=== PATIENT | female | born 1970 | race Caucasian/White ===

== ENCOUNTER → 2016-09-05 | Outpatient (CLI) | payer OTHER, BC ==
[~2016-09-05] MED LIST: ACET-1256 PO; CHOL2000 PO; LEVO100T7 PO; MULT-360 PO; MULT-513 PO
--- NOTE | 2016-09-05 09:25 | DIAGNOSTIC IMAGING REPORT ---
LEFT HIP UNILATERAL 2 VIEWS CLINICAL HISTORY: LEFT HIP PAIN pain COMPARISON: None. DISCUSSION: The bones and joint spaces appear intact. There is no evidence of fracture, dislocation or bony disease. There is no evidence for soft tissue swelling. IMPRESSION: Negative study. Electronically signed by: Zac Tran M.D. 09/05/2016 9:23 AM Dictated Date/Time: 09/05/2016 9:23 AM
== END | disposition home or self-care (01) ==
LOC: C.RAD1850 09:06
PROVIDERS: ATTEND Nurse Practitioner Adult Health
DX: M25.552 Pain in left hip (principal)

== ENCOUNTER → 2016-09-26 | Outpatient (CLI) | payer BC | END | disposition home or self-care (01) | LOC: C.PAPS 15:28 | PROVIDERS: ATTEND Physician Assistant | DX: Z01.419 Encounter for gynecological examination (general) (routine) without abnormal findings (principal) ==

== ENCOUNTER 2017-05-08 21:27 | Emergency (ER) | payer BC ==
[~2017-05-08] VITALS: Ht 154.9 cm; Wt 89.7 kg
[2017-05-08 21:31] VITALS: TEMP 36.5; Ht 154.9 cm; Wt 89.7 kg
[2017-05-08] MEDS ORDERED: CEFTRIAXONE SOD INJ 1 GM ADDVIAL IV STA (21:38)
[2017-05-08] MEDS ORDERED: SULFAMETHOXAZOLE/TRIMETHOPRIM DS 800/160MG TAB PO STA (21:38)
--- NOTE | 2017-05-08 21:45 | EMERGENCY ROOM VISIT NOTE ---
History Report prepared by Zakiya: Ralph Benavidez Under the Supervision of: Dr. Hola Arevalo M.D. First contact with patient: 21:35 Chief Complaint: SWELLING TO EXTREMITY Stated Complaint: LEG SWELLING,HOT TO TOUCH/BURNING ON LEGS History of Present Illness The patient is a 46 year old female who presents to the Emergency Room with complaints of constant inflammation to a vein in her right inner thigh beginning this evening. The patient states her symptoms began with her leg becoming 'jumpy' and hot with a burning sensation. She reports she has history of phlebitis and prediabetes 15 years ago when she was . The patient notes she lost weight and is no longer at risk. She denies chest pain and shortness of breath. Source of History: patient Onset: this evening Position: leg (right inner thigh) Quality: burning, other (hot, inflammed vein) Timing: constant Associated Symptoms: No chest pain, No SOB Note: Associated symptoms: jumpy leg Review of Systems See HPI for pertinent positives & negatives. A total of 10 systems reviewed and were otherwise negative. Past Medical & Surgical Medical Problems: (1) Prediabetes Surgical Problems: (1) History of cholecystectomy Family History Cancer Diabetes mellitus Gallbladder disease Heart disease Hypertension Kidney disease Kidney stones Social History Smoking Status: Never Smoker Alcohol Use: none Drug Use: none Marital Status: single Housing Status: lives with family Occupation Status: employed Current/Historical Medications Scheduled Acetaminophen (Tylenol), 1-2 TAB PO Q8 Cephalexin Monohydrate (Keflex), 1 CAP PO QID Cholecalciferol (Vitamin D3), 1 CAP PO DAILY Levothyroxine Sodium (Levothyroxine Sodium), 175 MCG PO DAILY Sulfa/Trimethoprim (Bactrim Ds 800MG/160MG), 1 TAB PO BID [B 12 Liquid Vit], 1 DOSE SL DAILY [Pro-Care Vitamin], 1 TAB PO DAILY Allergies Coded Allergies: No Known Allergies (Verified , 04/24/16) Physical Exam Vital Signs Date Time Temp Pulse Resp B/P (MAP) Pulse Ox O2 Delivery O2 Flow Rate FiO2 05/08/17 23:31 79 16 112/68 96 05/08/17 21:31 36.5 72 16 151/77 99 Room Air Physical Exam GENERAL: Patient is a healthy-appearing well-nourished 46 year old female. HEAD: Normocephalic atraumatic EYES: Ocular movements intact pupils equal and react to light OROPHARYNX mucous membranes are moist no exudates present no erythema or edema present NECK: Supple no nuchal rigidity CHEST: Good equal expansion LUNGS: Clear and equal to auscultation CARDIAC: Normal S1 and S2 ABDOMEN: Soft nontender no guarding BACK: No CVA tenderness EXTREMITIES: No pain upon palpation normal muscle strength in all groups no clubbing cyanosis or edema. Area of cellulitis to left thigh [id number], superficial varicose veins NEURO: Patient is following commands and answering questions appropriately. Alert and oriented x3 Cranial Nerves 2-12 grossly intact Medical Decision & Procedures ER Provider Diagnostic Interpretation: Radiology results as stated below per my review and radiologist interpretation: RIGHT LOWER EXTREMITY VENOUS DOPPLER HISTORY: Right leg swelling. COMPARISON STUDY: None. FINDINGS: There is normal compressibility, flow, and augmentation within the right lower extremity deep venous system. Multiple superficial varicosities at the level of the knee/posterior calf which are patent. IMPRESSION: No DVT within the right lower extremity Electronically signed by: Franklyn Mullen M.D. 05/08/2017 11:03 PM Dictated Date/Time: 05/08/2017 11:02 PM Laboratory Results 05/08/17 21:45 Red Blood Count 4.97, Mean Corpuscular Volume 87.1, Mean Corpuscular Hemoglobin 29.4, Mean Corpuscular Hemoglobin Concent 33.7, Mean Platelet Volume 10.6, Neutrophils (%) (Auto) 57.7, Lymphocytes (%) (Auto) 30.7, Monocytes (%) (Auto) 9.8, Eosinophils (%) (Auto) 1.3, Basophils (%) (Auto) 0.4, Neutrophils # (Auto) 4.82, Lymphocytes # (Auto) 2.57, Monocytes # (Auto) 0.82, Eosinophils # (Auto) 0.11, Basophils # (Auto) 0.03 05/08/17 21:45 Test 05/08/17 21:45 White Blood Count 8.36 K/uL (4.8-10.8) Red Blood Count 4.97 M/uL (4.2-5.4) Hemoglobin 14.6 g/dL (12.0-16.0) Hematocrit 43.3 % (37-47) Mean Corpuscular Volume 87.1 fL (80-100) Mean Corpuscular Hemoglobin 29.4 pg (25-34) Mean Corpuscular Hemoglobin Concent 33.7 g/dl (32-36) Platelet Count 249 K/uL (130-400) Mean Platelet Volume 10.6 fL (7.4-10.4) Neutrophils (%) (Auto) 57.7 % Lymphocytes (%) (Auto) 30.7 % Monocytes (%) (Auto) 9.8 % Eosinophils (%) (Auto) 1.3 % Basophils (%) (Auto) 0.4 % Neutrophils # (Auto) 4.82 K/uL (1.4-6.5) Lymphocytes # (Auto) 2.57 K/uL (1.2-3.4) Monocytes # (Auto) 0.82 K/uL (0.11-0.59) Eosinophils # (Auto) 0.11 K/uL (0-0.5) Basophils # (Auto) 0.03 K/uL (0-0.2) RDW Standard Deviation 42.5 fL (36.4-46.3) RDW Coefficient of Variation 13.5 % (11.5-14.5) Immature Granulocyte % (Auto) 0.1 % Immature Granulocyte # (Auto) 0.01 K/uL (0.00-0.02) Anion Gap 7.0 mmol/L (3-11) Est Creatinine Clear Calc Drug Dose 77.9 ml/min Estimated GFR () 87.1 Estimated GFR (Non- 75.1 BUN/Creatinine Ratio 19.3 (10-20) Calcium Level 8.5 mg/dl (8.5-10.1) Labs reviewed by ED physician. Medications Administered Medications (Trade) Dose Ordered Sig/Yuri Route Start Time Stop Time Status Last Admin Dose Admin Ceftriaxone Sodium (Rocephin Inj) 1 gm NOW STAT IV 05/08/17 21:38 05/08/17 21:40 DC 05/08/17 22:02 1 GM Trimethoprim/ Sulfamethoxazole (Septra Ds 800/ 160MG Tab) 1 tab NOW STAT PO 05/08/17 21:38 05/08/17 21:40 DC 05/08/17 22:02 1 TAB Ketorolac Tromethamine (Toradol Inj) 30 mg NOW STAT IV 05/08/17 22:59 05/08/17 23:00 DC 05/08/17 23:16 30 MG ED Course 2136: Past medical records reviewed. The patient was evaluated in room B02. A complete history and physical examination was performed. 2137: Ordered Trimethoprim/Sulfamethoxazole 1 tab PO, Ceftriaxone Sodium 1gm IV 2258: Ordered Toradol Inj 30mg IV 0: Upon reexamination the patient is resting and feeling better. I discussed results and treatment plan with the patient. She verbalizes agreement and understanding. The patient is ready for discharge. Medical Decision Differential diagnosis: Etiologies such as cellulitis, abscess, MRSA infection, DVT, necrotizing fasciitis, dermatitis, drug eruption, as well as others were entertained. This is a 46-year-old female who presents emergency department complaining of right leg swelling. The patient has a history of cellulitis to this leg and has an area about 6" x 12" to her right upper extremity. The patient has a large amount of varicose veins in her legs however they are easily compressible and I do not feel any superficial blood clots. She was sent for an ultrasound to rule out a DVT. The patient was given Rocephin and Bactrim in the emergency department. I do believe that the patient as well as to be discharged home for follow-up with her primary care physician. Patient was in agreement with the treatment plan. Impression Primary Impression: Cellulitis Scribe Attestation The scribe's documentation has been prepared under my direction and personally reviewed by me in its entirety. I confirm that the note above accurately reflects all work, treatment, procedures, and medical decision making performed by me. Departure Information Dispostion Home / Self-Care Prescriptions Sulfa/Trimethoprim (Bactrim Ds 800MG/160MG) Tab 1 TAB PO BID for 10 Days, #20 TAB Prov: Hola Arevalo MD 05/08/17 Cephalexin Monohydrate (Keflex) 500 Mg Cap 1 CAP PO QID for 10 Days, #40 CAP Prov: Hola Arevalo MD 05/08/17 Referrals Louie Beauchamp Jr,D.O. (PCP) Forms HOME CARE DOCUMENTATION FORM, IMPORTANT VISIT INFORMATION, WORK / SCHOOL INSTRUCTIONS Patient Instructions Cellulitis - [facility], [facility] Additional Instructions Apply warm compresses and take either aleve or Ibuprofen You have been examined and treated today on an emergency basis only. This is not a substitute for, or an effort to provide, complete comprehensive medical care. It is impossible to recognize and treat all injuries or illnesses in a single emergency department visit. It is therefore important that you follow up closely with Dr Beauchamp. Call as soon as possible for an appointment. Thank you for your time and consideration. I look forward to speaking with you again soon. Please don't hesitate to call us if you have any questions. Problem Qualifiers Primary Impression: Cellulitis Site of cellulitis: extremity Site of cellulitis of extremity: lower extremity Laterality: right Qualified Codes: L03.115 - Cellulitis of right lower limb
[2017-05-08 22:13] LABS: BUN/CREATININE RATIO 19.3 (10-20); CALCIUM 8.5 mg/dl (8.5-10.1); CREATININE 0.91 mg/dl (0.60-1.20); POTASSIUM 3.6 mmol/L (3.5-5.1)
[2017-05-08] MEDS ORDERED: [UNRECOGNIZED DRUG - OTHER] PO (22:17)
[2017-05-08] MEDS ORDERED: [UNRECOGNIZED DRUG - OTHER] SL (22:17)
[2017-05-08 22:56] LABS: BASO % 0.4 %; BASO ABS # 0.03 K/uL (0-0.2); COMPLETE YES; EOS % 1.3 %; HEMATOCRIT 43.3 % (37-47); IG% 0.1 %; LYMPH % 30.7 %; LYMPH ABS # 2.57 K/uL (1.2-3.4); MEAN CELL VOLUME 87.1 fL (80-100); MEAN CORPUSCULAR HEMOGLOBIN 29.4 pg (25-34); MEAN CORPUSCULAR HGB CONC 33.7 g/dl (32-36); MEAN PLATELET VOLUME 10.6 fL (7.4-10.4); MONO % 9.8 %; NEUT % 57.7 %; PLATELET COUNT 249 K/uL (130-400); RED BLOOD COUNT 4.97 M/uL (4.2-5.4); WHITE BLOOD COUNT 8.36 K/uL (4.8-10.8)
[2017-05-08] MEDS ORDERED: KETOROLAC TROMETHAMINE 30 MG/ML VIAL IV STA (22:59)
--- NOTE | 2017-05-08 23:04 | DIAGNOSTIC IMAGING REPORT ---
RIGHT LOWER EXTREMITY VENOUS DOPPLER HISTORY: Right leg swelling. COMPARISON STUDY: None. FINDINGS: There is normal compressibility, flow, and augmentation within the right lower extremity deep venous system. Multiple superficial varicosities at the level of the knee/posterior calf which are patent. IMPRESSION: No DVT within the right lower extremity Electronically signed by: Franklyn Mullen M.D. 05/08/2017 11:03 PM Dictated Date/Time: 05/08/2017 11:02 PM
[2017-05-08] MEDS ORDERED: SULF800T23 PO (23:25)
[2017-05-08] MEDS ORDERED: CEPH500C PO (23:25)
[2017-05-08 23:31] VITALS: BP 112/68; PULSE 79; O2SAT 96
== END 2017-05-08 23:38 | disposition home or self-care (01) ==
LOC: C.EDB 21:29
DX: L03.115 Cellulitis of right lower limb (principal); Z90.49 Acquired absence of other specified parts of digestive tract; Z83.3 Family history of diabetes mellitus; Z82.49 Family history of ischemic heart disease and other diseases of the circulatory system; Z84.1 Family history of disorders of kidney and ureter; I83.90 Asymptomatic varicose veins of unspecified lower extremity